=== PATIENT | female | born 1950 | race Caucasian/White ===

== ENCOUNTER → 2024-12-18 | Outpatient (CLI) | payer MEDICARE, OTHER, SELFPAY ==
--- NOTE | 2024-12-18 09:43 | VDLE_ITS ---
Reason For Study Reason For Study: Pain BLE RIGHT LEFT CFV is compressible, spontaneous, phasic, competent GSV is normal. and demonstrates normal augmentation. CFV is compressible, spontaneous, phasic, competent, FV is compressible, spontaneous, phasic, competent and demonstrates normal augmentation. and demonstrates normal augmentation. FV is compressible, spontaneous, phasic, competent POP V is compressible, spontaneous, phasic, competent and demonstrates normal augmentation. and demonstrates normal augmentation. POP V is compressible, spontaneous, phasic, competent T/P Trunk is compressible. and demonstrates normal augmentation. PTV is compressible. T/P Trunk is compressible. RT PerV is compressible. PTV is compressible. SFJ is competent and measures 0.37cm x 0.41 cm. LT PerV is compressible. GSV proximal thigh measures 0.21cm x 0.22 cm. SFJ is competent and measures 0.34cm x 0.34 cm. GSV at knee measures 0.25cm x 0.25 cm. GSV proximal thigh measures 0.23cm x 0.24 cm. GSV above knee is competent. GSV at knee measures 0.28cm x 0.25 cm. GSV below knee is INCOMPETENT for greater than 0.5 GSV is competent throughout. seconds. SSV mid calf is competent and measures 0.25cm x 0.26 SSV mid calf is competent and measures 0.12cm x 0.12 cm. cm. VL/Venous Duplex US - Flex Extrem Interpretation Summary Deep veins of the lower extremities are bilaterally patent and compressible seg mentally. There is no evidence of deep vein thrombosis on either side. Valvular competence appears intact within the p roximal deep venous systems bilaterally. The great saphenous veins appear bilaterally patent and compressible segmentall y. Sapheno-femoral junctions are bilaterally competent . The right great saphenous vein appears competent above the knee. The right great saphenous vein appears incompetent below the knee. The left great saphenous vein appears segme ntally competent. Small saphenous veins are patent and competent bilaterally. Ordering Physician: Rosalino Tolliver Referring Physician: Jefe Dial Performed By: Rimma Nagel, MAGGIE, RVT
--- NOTE | 2024-12-18 09:44 | ART_ITS ---
Reason For Study Reason For Study: PVD Procedure A bilateral lower extremity continuous wave Doppler with analog waveform analysis,segmental pressures,and ankle brachial indexes without exercise. Left Segmental Pressures Left brachial= 140mmHg. Left posterior tibial artery = 151mmHg. Left dorsalis pedis artery = 153mmHg. Left digit = 101 mmHg. Right Segmental Pressures Right brachial= 127mmHg. Right posterior tibial artery = 155mmHg. Right dorsalis pedis artery = 150mmHg. Right digit = 105 mmHg. Indices The right ankle brachial index by the posterior tibial artery is 1.11. The right ankle brachial index by the dorsalis pedis is 1.07. The right digital-brachial index is 0.75. The left ankle brachial index by the posterior tibial artery is 1.08. The left ankle brachial index by the dorsalis pedis is 1.09. The left digital-brachial index is 0.72. VL/Lower Ext Art Exam w/o Exercis Interpretation Summary Triphasic Doppler waveforms are noted at ankle level bilaterally. Pulse-volume recordings appear diminished at digital level on the left, but satisfactory at all other levels bilaterally. Resting an kle-brachial indices are normal bilaterally. Digital-brachial indices are normal bilaterally. There is no evidence of significant arterial occlusive disease in the lower ext remities bilaterally. Ordering Physician: Rosalino Tolliver Referring Physician: Jefe Dial Performed By: Rimma Nagel RDCS/RVT
== END | disposition home or self-care (01) ==
LOC: CVS 09:40
PROVIDERS: PCP Family Medicine; Referring Provider Podiatrist Foot & Ankle Surgery; Visit Provider Podiatrist Foot & Ankle Surgery
DX: I73.9 Peripheral vascular disease, unspecified (principal); M79.604 Pain in right leg; M79.605 Pain in left leg
CPT/HCPCS: 93923; 93970